=== PATIENT | male | born 1995 | race Hispanic/Latino ===

== ENCOUNTER 2022-05-02 15:25 | Emergency (ER) | payer OTHER ==
[~2022-05-02] VITALS: Ht 170.2 cm; Wt 72.6 kg
[2022-05-02 15:36] VITALS: BP 128/93
[2022-05-02] MEDS ORDERED: LIDOCAINE HCL 1% 10 ML VIAL ONE (15:43)
[2022-05-02] MEDS ORDERED: TETANUS/DIPHTHERIA TOXOID [ADULT] 0.5 ML VIAL IM ONE (16:00)
[2022-05-02] MEDS ORDERED: BACITRACIN 1 EACH PACKET TP ONE (17:00)
[2022-05-02] MEDS ORDERED: BACITRACIN 3.5 GM TUBE OU ONE (17:00)
[2022-05-02] MEDS ORDERED: LIDOCAINE HCL 1% 20 ML VIAL INJ SCH (17:00)
[2022-05-02] MEDS ORDERED: BACITRACIN 28.4 GM OINT TP ONE (17:00)
[2022-05-02] MEDS ORDERED: AMOX/CLAV 875/125MG TAB PO ONE (17:00)
[2022-05-02] MEDS ORDERED: AMOX1TAB16 PO (17:05)
[2022-05-02] MEDS ORDERED: IBUP-2070 PO (17:05)
[2022-05-02] MEDS ORDERED: BACI30OI6 TP (17:05)
[2022-05-02] MEDS ORDERED: ACETAMINOPHEN WITH CODEINE 1 TAB TAB PO ONE (17:30)
== END 2022-05-02 17:32 | disposition home or self-care (01) ==
LOC: EDH 15:25
DX: S67.194A Crushing injury of right ring finger, initial encounter (principal); S62.634A Displaced fracture of distal phalanx of right ring finger, initial encounter for closed fracture; W23.0XXA Caught, crushed, jammed, or pinched between moving objects, initial encounter; Y93.89 Activity, other specified; Y92.89 Other specified places as the place of occurrence of the external cause; Y99.8 Other external cause status
CPT/HCPCS: 99283; 73130; 12001; J3490